=== PATIENT | male | born 1960 | race Two or more races ===

== ENCOUNTER 2023-01-08 12:17 | Emergency (ER) | payer OTHER ==
[~2023-01-08] VITALS: Ht 165.1 cm; Wt 86.2 kg
[2023-01-08] MEDS ORDERED: LEVOTHYROXINE75 MCG PO (12:39)
[2023-01-08] MEDS ORDERED: ANTIVERT25 M2 PO (14:36)
== END 2023-01-08 14:48 | disposition home or self-care (01) ==
LOC: ER 12:17
DX: H81.10 Benign paroxysmal vertigo, unspecified ear (principal); R11.0 Nausea; I10 Essential (primary) hypertension; Z88.6 Allergy status to analgesic agent